=== PATIENT | female | born 1955 | race Caucasian/White ===

== ENCOUNTER 2017-08-04 07:04 | Inpatient (IN) | END 2017-08-11 19:45 | disposition home or self-care (01) | DRG 472 ==

== ENCOUNTER 2017-08-27 16:28 | Emergency (ER) | END 2017-08-27 19:44 | disposition home or self-care (01) ==

== ENCOUNTER 2017-09-11 12:36 | Inpatient (IN) | END 2017-09-15 21:10 | disposition home health service (06) | DRG 863 ==